=== PATIENT | male | born 1965 | race Caucasian/White ===

== ENCOUNTER 2016-08-15 10:53 | Day surgery (SDC) | payer OTHER ==
[~2016-08-15] VITALS: Ht 188 cm; Wt 111.7 kg
[2016-08-15] VITALS (12 sets, daily range): BP systolic 111–160; BP diastolic 64–90; PULSE 72–90; RESP 11–20; Ht 188 cm; Wt 111.7 kg
[2016-08-15] MEDS ORDERED: CEFAZOLIN 2 GM/50 ML (PMX) 50 ML IVPB ONE (11:00)
[2016-08-15] MEDS ORDERED: SOD CHLORIDE 0.9% 1,000 ML IV ONE (11:00)
[2016-08-15] MEDS ORDERED: BUPIVACAINE 0.25%/EPI (SDV) 30 ML INJ ONE (12:44)
[2016-08-15] MEDS ORDERED: POLYMYXIN/BACITRACIN 1L IRRIG ONE (12:50)
--- NOTE | 2016-08-15 13:03 | HPN ---
Date/Time of Note Date/Time of Note DATE: 08/15/16 TIME: 13:03 Interval H&P Admission Note Pt. seen H&P reviewed: No system changes BECKY AVALOS MD Aug 15, 2016 13:03
[2016-08-15] MEDS ORDERED: PROPOFOL 20 ML ONE (13:25)
[2016-08-15] MEDS ORDERED: ROCURONIUM 50 MG INJ ONE (13:25)
[2016-08-15] MEDS ORDERED: SUCCINYLCHOLINE CHLORIDE 100 MG/5 ML SYG IV ONE (13:25)
[2016-08-15] MEDS ORDERED: ONDANSETRON 4 MG INJ ONE (13:26)
[2016-08-15] MEDS ORDERED: DEXAMETHASONE 4 MG/ML 1 ML INJ ONE (13:26)
[2016-08-15] MEDS ORDERED: MIDAZOLAM 1 MG/ML 2 ML INJ ONE ×2 (13:26→15:13)
[2016-08-15] MEDS ORDERED: CEFAZOLIN 1 GM INJ ONE (13:28)
[2016-08-15] MEDS ORDERED: GLYCOPYRROLATE 0.4 MG INJ ONE (14:27)
[2016-08-15] MEDS ORDERED: EPHEDrine SULFATE 50 MG/5 ML SYG ONE (14:27)
[2016-08-15] MEDS ORDERED: NEOSTIGMINE 3 MG/3 ML SYRINGE ONE (14:27)
[2016-08-15] MEDS ORDERED: MIDAZOLAM 1 MG/ML 2 ML INJ IV PRN (14:30)
[2016-08-15] MEDS ORDERED: KETOROLAC 30 MG INJ IV ONE (14:30)
[2016-08-15] MEDS ORDERED: ONDANSETRON 4 MG INJ IV PRN ×2 (14:30→15:30)
[2016-08-15] MEDS ORDERED: FENTAnyl 50 MCG/ML VIAL IV PRN (14:30)
[2016-08-15] MEDS ORDERED: EPHEDrine SULFATE 50 MG/5 ML SYG IV PRN (14:30)
[2016-08-15] MEDS ORDERED: DIPHENHYDRAMINE 50 MG INJ IV PRN (14:30)
[2016-08-15] MEDS ORDERED: HYDROmorphONE (0.2 MG/ML) 10ML SYG IV PRN ×2 (14:30)
[2016-08-15] MEDS ORDERED: MEPERIDINE 25 MG INJ IV PRN (14:30)
[2016-08-15] MEDS ORDERED: ROPIVACAINE 0.5 % 30 ML VIAL ONE (14:39)
[2016-08-15] MEDS ORDERED: KETOROLAC 30 MG INJ ONE (14:47)
--- NOTE | 2016-08-15 15:19 | OPR ---
Date/Time of Note Date/Time of Note DATE: 08/15/16 TIME: 15:10 Operative Report Procedure Date: Aug 15, 2016 Preoperative Diagnosis Ventral hernia without obstruction or gangrene Postoperative Diagnosis Ventral hernia without obstruction Operation Performed 1. Ventral hernia repair with mesh 2. Lysis of adhesions 3. Implantation of biological extracellular matrix Surgeon: BECKY AVALOS MD Anesthesia: general Anesthesiologist: DEBORA MCGREGOR M.D. Estimated Blood Loss: minimal Specimens Hernia sac and contents Complications: None Pt Condition Post Procedure: stable Disposition: PACU Indications The patient is an obese 50-year-old male who presented to the office complaining of a painful bulge of the abdomen. This was present for the past year and a half. He was diagnosed on physical exam as having a large ventral hernia. He is scheduled for elective ventral hernia repair with mesh to prevent further sequelae of hernia disease which include, but are not limited to: Incarceration and strangulation. All risks and benefits of the procedure including, but not limited to: Wound infection, excessive bleeding, postoperative seroma/hematoma formation, hernia recurrence, chronic pain, etc. were all explained to the patient in full detail. He fully understood and wished to proceed with the procedure. Informed consent was obtained. Operative\Procedure Findings Large ventral hernia involving umbilicus and incarcerated with omentum. Procedure Description The patient was brought to the operating room and placed supine on the operating table. Bilateral sequential compression devices were placed on both lower extremities. A dose of broad-spectrum perioperative intravenous antibiotics was given. After the induction of smooth general endotracheal anesthesia the patient's abdomen was prepped and draped in the standard surgical fashion. A periumbilical midline incision was made and carried down through the skin and dermis using sharp dissection. A large hernia sac was identified in the subcutaneous tissues involving the umbilicus. Dissection was continued down to the anterior rectus fascia and the hernia sac was dissected off of surrounding tissues. Small incision was made in the hernia sac and it was opened. There was incarcerated omentum within the sac. Lysis of adhesions was done and the omentum was freed from the hernia sac and reduced back into the intra-abdominal cavity. Once the sac was then dissected around the fascia it was transected and passed off the field as specimen. Subcutaneous tissues were then dissected off of the fascia clearing enough space for deployment of the mesh. A large Ethicon proceed ventral hernia patch was used to repair the hernia defect. The mesh was soaked in antibiotic irrigation prior to placement in the field. The tails of the patch were sutured in place to the fascia using interrupted 2-0 Novafil sutures. With the repair complete it was examined and noted to be tension-free and hemostatic. The wound cavity was irrigated. The fascia was then reapproximated over the mesh using #1 PDS sutures in figure-of- eight fashion. Given the patient's obesity, to aid in tissue regeneration and reduce the likelihood of recurrence and infection a piece of ACell 3 layer extracellular biological matrix was placed on top of the fascia. Matrix was soaked in antibiotic irrigation prior to placement. It was secured in place using interrupted 3-0 Vicryl sutures. 0.25% Marcaine with epinephrine local anesthesia was then injected into the fascia. The umbilicus was then tacked back down to the fascia using interrupted 3-0 Vicryl sutures. Subcutaneous tissues were irrigated with more antibiotic containing irrigation. Incision was then reapproximated using skin jennifer. Further local anesthesia was injected around the incision site. Incision was cleaned and sterile dressings were applied as well as an abdominal binder. The patient was then awoken from anesthesia and transported to the recovery room in stable condition. All counts were correct at the end of the case 2 BECKY AVALOS MD Aug 15, 2016 15:19
[2016-08-15] MEDS ORDERED: morphine 2 MG INJ IV PRN (15:30)
[2016-08-15] MEDS ORDERED: KETOROLAC 30 MG INJ IV PRN (15:30)
[2016-08-15] MEDS ORDERED: OXYCODONE/ACETAMINOPHEN (5/325) TAB PO PRN ×2 (15:30)
[2016-08-15] MEDS: HYDROmorphONE (0.2 MG/ML) 10ML SYG IV PRN ×3 (15:44→15:58)
[2016-08-16] MEDS ORDERED: IBUPROFEN 600 MG TAB PO PRN (23:00)
== END 2016-08-15 18:02 | disposition home or self-care (01) ==
LOC: SDS 10:53
PROVIDERS: ATTEND Surgery
DX: K43.9 Ventral hernia without obstruction or gangrene (principal)
CPT/HCPCS: 49560; 49568; 88302; C1781; J0330; J0690; J1100; J1170; J1885; J2250; J2405; J2710; J2795; J3010; Q4166